=== PATIENT | male | born 1940 | race Caucasian/White ===

== ENCOUNTER 2021-01-07 02:49 | Outpatient (CLI) | payer MEDICARE, BC, SELFPAY ==
[2021-01-07 11:18] LABS: Source Nasal/Nares
[2021-01-07 19:21] LABS: COVID-19 PCR Positive (Negative)
== END 2021-01-07 02:50 | disposition home or self-care (01) ==
LOC: LBO 02:49
PROVIDERS: Visit Provider Ophthalmology
DX: Z20.822 Contact with and (suspected) exposure to COVID-19 (principal); Z01.818 Encounter for other preprocedural examination
CPT/HCPCS: 87635

== ENCOUNTER 2021-04-29 04:06 | Outpatient (CLI) | payer MEDICARE, SELFPAY ==
[2021-04-29 13:08] LABS: Source Nasal/Nares
[2021-04-29 20:28] LABS: COVID-19 PCR Negative (Negative)
== END 2021-04-29 04:07 | disposition home or self-care (01) ==
PROVIDERS: Visit Provider Ophthalmology
DX: Z20.822 Contact with and (suspected) exposure to COVID-19 (principal)
CPT/HCPCS: 87635

== ENCOUNTER 2021-05-02 06:49 | Day surgery (SDC) | payer MEDICARE, SELFPAY ==
[2021-05-02 07:13] VITALS: BP 131/91; PULSE 93; RESP 24; TEMP 36.3; O2SAT 98
[2021-05-02] MEDS: Tropicam./Phenyleph. (1/2.5%) 5 ML BTL OD ×3 (07:23→07:33)
--- NOTE | 2021-05-02 07:37 | W.ANESPRE ---
General Info Date of Service Date Performed: 05/02/21 Height: 5 ft 9 in Weight: 98.9 kg Body Mass Index (BMI): 32.1 Surgical Procedure: Operation Date: 05/02/21 08:40 Proposed Procedures Side Surgeon p Cataract Extraction with IOL Implant Right Manfred Lynch MD Meds Allergies and Home Medications Allergies Allergy/AdvReac Type Severity Reaction Status Date / Time animal dander Allergy Unverified 05/02/21 07:18 Home Medication Medication Instructions Recorded apixaban [Eliquis] 5 mg PO DAILY 01/06/21 atorvastatin 80 mg PO DAILY 01/06/21 famotidine 20 mg PO HS 01/06/21 tkyljpscxaz-jzzjrqrtc-yfwhamzn 1 inh INHALATION DAILY 01/06/21 [Trelegy Ellipta] ipratropium-albuterol [Combivent 1 puff INHALATION QID 01/06/21 Respimat] lisinopril 40 mg PO DAILY 01/06/21 magnesium 200 mg PO DAILY 01/06/21 metoprolol succinate 200 mg PO DAILY 01/06/21 nitroglycerin 0.4 mg SUBLINGUAL DIRECTED 01/06/21 omega-3 fatty acids [Fish Oil] 1 cap PO DAILY 01/06/21 furosemide 40 mg PO QAM 04/29/21 loteprednol etabonate 1 drp OPHTHALMIC (EYE) BID PRN 04/29/21 Current Visit Medications: Current Medications Generic Name Dose Route Start Last Admin Trade Name Freq PRN Reason Stop Dose Admin Acetaminophen 1,000 mg 05/02/21 06:00 Acetaminophen 500 Mg Tab PO Q4H PRN PRN Miscellaneous Medication 0 ml 05/02/21 06:00 Prednisolone 1%, Moxifloxacin 0.5%, Nepafenac 0.1% 5ml Btl OD DIRECTED [place] Miscellaneous Medication 0 ml 05/02/21 06:00 05/02/21 07:33 Tropicam./Phenyleph. (1/2.5%) 5 Ml Btl OD 1 drp DIRECTED [place] Administration Tetracaine HCl 0 ml 05/02/21 06:00 Tetracaine 0.5% 4 Ml Btl OD DIRECTED [place] PFSH Active Problems Active Problems: Problem Status Onset Code Nuclear sclerotic cataract of right eye H25.11 Cortical cataract of right eye H26.9 Medical History Medical History A-fib F/U with cardiolgist Dr. Packer [place] 2019 Atherosclerosis of coronary artery Benign neoplastic disease COPD (chronic obstructive pulmonary disease) COVID-19 Do not resuscitate status with supporting documentation Dyspnea Early satiety Exposure to hazardous metals GERD (gastroesophageal reflux disease) Gout Hearing loss HLD (hyperlipidemia) Hypersomnia Hypertensive disorder Lack of energy Lesion of ulnar nerve Mild intermittent asthma Neuromyopathy Obesity Respiration intermittent Pt states. The doctors tell me my breathing muscles are weak. Pt. states he is able to lay flat Shoulder joint pain Tinnitus Surgical History Surgical History History of esophagogastroduodenoscopy (EGD) Hx of cardiac catheterization 2013 Hx of colonoscopy Hx of tonsillectomy Tobacco Smoking/Tobacco Use Status: Former Tobacco Use Alcohol Alcohol Intake: current Alcohol intake frequency: a few times a week Alcohol type: hard liquor Substance Use Substance use: Never Substance use type: does not use Vital Signs and Lab Results Vital Signs Most Recent Vital Signs in EMR: Most Recent Vital Signs Temp Pulse Resp BP Pulse Ox 36.3 C L 93 H 24 131/91 H 98 05/02/21 07:13 05/02/21 07:13 05/02/21 07:13 05/02/21 07:13 05/02/21 07:13 Lab Results Blood Type / Crossmatch: No Data to Display Complete Blood Count: No Data to Display Complete Metabolic Panel: No Data to Display Liver Function Panel: No Data to Display Coagulation Panel: No Data to Display Cardiac Panel: No Data to Display Arterial Blood Gas: No Data to Display Venous Blood Gas: No Data to Display Pancreas Panel: No Data to Display Thyroid Panel: No Data to Display Infectious Disease: Coronavirus (COVID-19)(PCR) Negative (Negative) 04/29/21 08:49 04/29/21 Coronavirus 2019 Source Nasal/Nares 04/29/21 08:49 04/29/21 Blood Cultures: No Data to Display Toxicology Panel: No Data to Display Anesthesia Assessment and Plan Anesthesia History Personal History: No History of Anesthesia Complications Family History: No Family History of Anesthesia Complications Exercise Tolerance Exercise Tolerance: Metabolic Equivalents>4 Pertinent Negatives Pertinent Negatives: No Symptoms of GERD Cardiac & Pulmonary Exam Cardiac Exam: Normal S1/S2 Heart Sounds Pulmonary Exam: Clear Bilateral Breath Sounds Implantable Cardiac Device Does patient have a Pacemaker or an ICD?: No Airway Exam Known Difficult Airway: No Mallampati Class: 3 Mouth Opening: Normal (> 3cm) Thyromental Distance: Greater than 3 cm Facial Hair: Full Garcia Neck Range of Motion: Full ROM Neck Circumference: Normal Teeth Condition: Removable Dentures/Plates Upper (Partial) ASA Classification ASA Score: ASA 3 Emergency Case?: No NPO Status NPO Status: NPO Clears >2 hours, Solids >8 hours Anesthesia Plan Resuscitation Status: Full Code Anesthesia Technique: MAC Anesthesia Airway Planned: Natural Airway Monitors Used: Standard Monitors
[2021-05-02 07:49] VITALS: BMI 32.1
[2021-05-02] MEDS: Tetracaine 0.5% 4 ML BTL OD (08:24)
[2021-05-02] MEDS: Duovisc Viscoelastic System EACH 1 EACH (08:28)
[2021-05-02] MEDS: Lidocaine 2% Jelly 6 ML SYR (08:30)
[2021-05-02] MEDS: Povidone-Iodine Ophth 30 ML BTL (08:32)
[2021-05-02] MEDS: Balanced Salt Soln.-PLUS 500 ML BAG (08:34)
[2021-05-02 08:42] VITALS: BP 119/93; PULSE 76; RESP 16; TEMP 36.3; O2SAT 97
--- NOTE | 2021-05-02 08:45 | W.PM.DSUDISC ---
Discharge Plan Disposition Patient Disposition: HOME Condition: Good Discharge Details Attending Provider: Manfred Lynch Primary Care Provider: Unknown,Unknown Home Meds and New Rx's Prescriptions: No Action atorvastatin 80 mg Tablet 80 mg PO DAILY RF: 0 metoprolol succinate 200 mg Tablet Extended Release 24 Hr 200 mg PO DAILY RF: 0 famotidine 20 mg Tablet 20 mg PO HS RF: 0 nitroglycerin 0.4 mg Tablet, Sublingual 0.4 mg sublingual DIRECTED RF: 0 lisinopril 40 mg Tablet 40 mg PO DAILY RF: 0 magnesium 200 mg Tablet 200 mg PO DAILY RF: 0 Fish Oil Capsule 1 cap PO DAILY RF: 0 Eliquis 5 mg Tablet 5 mg PO DAILY RF: 0 Combivent Respimat 20-100 mcg/actuation Mist 1 puff inhalation QID RF: 0 Trelegy Ellipta 100-62.5-25 mcg Blister With Device 1 inh INHALATION DAILY RF: 0 furosemide 40 mg Tablet 40 mg PO QAM RF: 0 loteprednol etabonate 0.5 % Drops,Suspension 1 drp OPHTHALMIC (EYE) BID PRNRF: 0 Discharge Instructions Stand Alone Forms: Post-op Topical Cataract, Shivani Apodaca (DSU) Discharge Orders Discharge Orders: Discharge Order (Routine); Ordered 05/02/21 Ordered By: Manfred Lynch DS: Diagnosis Discharge Diagnosis (1) Nuclear sclerotic cataract of right eye: Status: Resolved (2) Cortical cataract of right eye: Status: Resolved
--- NOTE | 2021-05-02 08:45 | W.PM.OP ---
Date of service: 05/02/21 Time of Service: 08:45 Operative Note Operative Note DATE OF PROCEDURE: 05/02/21 PRE-OP DIAGNOSIS: Nuclear/cortical/posterior subcapsular cataract, right eye POST-OP DIAGNOSIS: same PROCEDURE: Cataract extraction using phacoemulsification with intraocular lens implant, right eye SURGEON: Manfred Lynch ANESTHESIA TYPE: Local By Surgeon and MAC Refer to Anesthesia Record ESTIMATED BLOOD LOSS: 0 PATHOLOGY: none sent COMPLICATIONS: None Patient was transported to: same day Patient's condition: stable Implants: Carlitos & Carlitos/MIRLANDE Tecnis [id number] Indications: Progressive visual loss due to cataract, right eye Procedure Description: CATARACT SURGERY OPERATIVE REPORT PREOPERATIVE DIAGNOSIS: 1. Nuclear/cortical/posterior subcapsular cataract, right eye POSTOPERATIVE DIAGNOSIS: Same OPERATION: 1. Cataract extraction using phacoemulsification with posterior chamber intraocular lens implant, right eye. IOL: IOL Wage Adjuster/Model: Carlitos & Carlitos / MIRLANDE Tecnis [id number] IOL Power: + 23.0 diopters IOL Serial Number: [id number] Optic Diameter: 6.0mm Haptic/Overall Diameter: 13.0mm PHACO INFO: Alfred t3n Magazinurion Vision System with OZil and Active Fluidics Cumulative Dispersed Energy (CDE): 15.05 seconds SURGEON: Manfred Lynch MD, MILAN ANESTHESIA: Monitored [facility] (MAC), with local sub-tenon's anesthetic infiltration COMPLICATIONS: None SPECIMENS: None INDICATIONS FOR PROCEDURE: The patient is a 80-year-old gentleman with history of diminished visual acuity in his right eye secondary to the development of nuclear/cortical/posterior subcapsular cataract. He is significantly symptomatic that he desires cataract surgery and attempt to improve and maximize his vision. PROCEDURE: The correct surgical eye was identified and marked as the right eye and the pupil was dilated in the preoperative area using mydriatics and cycloplegics. The dilated pupil size was 7.0 mm. He elected to proceed without oral sedation.. The patient was brought to the operating room where cardiopulmonary monitoring was instituted and surgical time-out was performed, confirming the correct operative eye and IOL power. Topical anesthesia was administered and ophthalmic povidone-iodine 5% was instilled into the conjunctival fornices. Lidocaine gel was applied to the cornea and the lexus-ocular area was prepped with Betadine 10% solution and draped in the usual sterile fashion for intraocular surgery, including an aperture drape. A Tegaderm transparent film dressing was cut in half and used to cover the lashes and lid margins. Care was taken to sequester the lashes and lid margins under the Tegaderm dressing. A lid speculum was placed between the lids of the operative eye and the Patrick-Jatin operating microscope was maneuvered into position. Jo Ann scissors were then used to make a conjunctival buttonhole approximately 6mm posterior to the limbus in the inferonasal quadrant. Blunt dissection was carried out to expose bare sclera, and a blunt-tipped sub-tenon?s anesthesia cannula was introduced and passed posteriorly along the globe where non-preserved plain lidocaine was injected into posterior sub-Tenon?s space. A sideport knife was used to make a paracentesis port inferotemporally. Intraocular phenylephrine/lidocaine was injected into the anterior chamber. The anterior chamber was filled with viscoelastic. A 2.4mm keratome knife was used to create a half-thickness groove at the limbus and then to construct a three-plane near-clear corneal tunnel extending 2.0mm into clear cornea superiortemporally. A flap was raised on the anterior capsule and capsulorhexis forceps were used to complete a continuous curvilinear capsulorhexis of 5.0 mm. Balanced salt solution was then used to perform cortical cleaving hydrodissection and nuclear hydrodelineation until the lens could be freely rotated within the capsular bag. The lens nucleus was then disassembled and removed within the capsular bag and iris plane using phacoemulsification. Residual cortical material was removed using the I/A handpiece. The posterior capsule was carefully polished to remove as much residual lens epithelial cells as safely possible. The capsular bag was then inflated and the anterior chamber deepened with viscoelastic. The lens implant described above was inserted into the capsular bag using the MIRLANDE [place] Injector. A Kuglen hook was used to dial the IOL into position. Residual viscoelastic was then removed first from posterior to the IOL, then from the anterior chamber using the I/A handpiece. The lens implant was noted to center nicely within the capsular bag. The incisions were stromally hydrated, and the anterior chamber was reformed using BSS. Then 0.5cc of moxifloxacin 1.0mg/ml were injected into the capsular bag and anterior chamber. The incisions were checked with a Weck spear and found to be secure. Several drops of ophthalmic povidone-iodine 5% were then applied to the eye followed by two drops of Imprimis combination prednisolone/moxifloxacin/nepafenac solution. The drapes were removed and a clear plastic protective eye shield was placed over the eye. The patient was then returned to Same Day Surgery in stable condition.
--- NOTE | 2021-05-02 09:04 | W.ANESPOSTOP ---
Postoperative Evaluation Date, Time and Location Date Performed: 05/02/21 Time Performed: 08:45 Patient Location: Day Surgery Unit Vital Signs Most Recent Imported Vital Signs: Most Recent Vital Signs Temp Pulse Resp BP Pulse Ox 36.3 C L 76 16 119/93 H 97 05/02/21 08:42 05/02/21 08:42 05/02/21 08:42 05/02/21 08:42 05/02/21 08:42 Pain Score Most Recent Pain Score: Most Recent Pain Score Pain Level 0 05/02/21 08:42 Assessment Mental Status: Awake (Alert & Oriented to Patient Baseline) Airway and Respiratory Function: Patent airway with normal (patient baseline) respiratory exam Cardiovascular Function: Hemodynamically Stable Hydration Status: Adequately Hydrated Nausea & Vomiting: No Nausea or Vomiting Pain: Pt. Denies Any Pain Peripheral Nerve Block: Patient did not receive a nerve block
== END 2021-05-02 09:00 | disposition home or self-care (01) ==
PROVIDERS: Visit Provider Ophthalmology
PROC: (CPT 66984; principal; 2021-05-02 08:30)
DX: H25.11 Age-related nuclear cataract, right eye (principal); I48.91 Unspecified atrial fibrillation; J44.9 Chronic obstructive pulmonary disease, unspecified; E78.5 Hyperlipidemia, unspecified; I10 Essential (primary) hypertension
CPT/HCPCS: 66984; V2632

== ENCOUNTER 2021-05-13 01:59 | Outpatient (CLI) | payer MEDICARE, SELFPAY ==
[2021-05-13 10:36] LABS: Source Nasal/Nares
[2021-05-13 13:45] LABS: COVID-19 PCR Negative (Negative)
== END 2021-05-13 02:00 | disposition home or self-care (01) ==
LOC: LBO 01:59
PROVIDERS: Visit Provider Ophthalmology
DX: Z20.822 Contact with and (suspected) exposure to COVID-19 (principal); Z01.818 Encounter for other preprocedural examination
CPT/HCPCS: 87635

== ENCOUNTER 2021-05-16 07:15 | Day surgery (SDC) | payer MEDICARE, SELFPAY ==
[2021-05-16 07:29] VITALS: BP 116/68; PULSE 73; RESP 16; TEMP 36.1; O2SAT 99
[2021-05-16] MEDS: Tropicam./Phenyleph. (1/2.5%) 5 ML BTL OS ×3 (07:38→07:50)
--- NOTE | 2021-05-16 08:26 | W.ANESPRE ---
General Info Date of Service Date Performed: 05/16/21 Height: 5 ft 9 in Weight: 98.7 kg Body Mass Index (BMI): 32.1 Surgical Procedure: Operation Date: 05/16/21 09:40 Proposed Procedure Side Surgeon p Cataract Extraction with IOL Implant Left Manfred Lynch MD Meds Allergies and Home Medications Allergies Allergy/AdvReac Type Severity Reaction Status Date / Time animal dander Allergy Verified 05/16/21 07:25 Home Medication Medication Instructions Recorded apixaban 5 mg tablet (Eliquis) 5 mg PO BID 01/06/21 atorvastatin 80 mg tablet 80 mg PO DAILY 01/06/21 famotidine 20 mg tablet 20 mg PO HS 01/06/21 fluticasone fur. 100 mcg-umeclid 1 inh INHALATION DAILY 01/06/21 62.5 mcg-vilant 25 mcg inhalat.powder (Trelegy Ellipta) ipratropium 20 mcg-albuterol 100 1 puff INHALATION QID 01/06/21 mcg/actuation mist for inhalation (Combivent Respimat) lisinopril 40 mg tablet 40 mg PO DAILY 01/06/21 magnesium 200 mg tablet 200 mg PO DAILY 01/06/21 metoprolol succinate 200 mg 200 mg PO DAILY 01/06/21 tablet,extended release 24 hr nitroglycerin 0.4 mg sublingual 0.4 mg SUBLINGUAL DIRECTED 01/06/21 tablet omega-3 fatty acids 1 cap PO DAILY 01/06/21 furosemide 40 mg tablet 40 mg PO QAM 04/29/21 loteprednol etabonate 0.5 % eye 1 drp OPHTHALMIC (EYE) BID PRN 04/29/21 drops,suspension Current Visit Medications: Current Medications Generic Name Dose Route Start Last Admin Trade Name Freq PRN Reason Stop Dose Admin Acetaminophen 1,000 mg 05/16/21 06:00 Acetaminophen 500 Mg Tab PO Q4H PRN PRN Miscellaneous Medication 0 ml 05/16/21 06:00 Prednisolone 1%, Moxifloxacin 0.5%, Nepafenac 0.1% 5ml Btl OS DIRECTED [place] Miscellaneous Medication 0 ml 05/16/21 06:00 05/16/21 07:50 Tropicam./Phenyleph. (1/2.5%) 5 Ml Btl OS 1 drp DIRECTED [place] Administration Tetracaine HCl 0 ml 05/16/21 06:00 Tetracaine 0.5% 4 Ml Btl OS DIRECTED [place] PFSH Active Problems Active Problems: Problem Status Onset Code Nuclear sclerotic cataract of right eye H25.11 Cortical cataract of right eye H26.9 Medical History Medical History A-fib F/U with cardiolgist Dr. Packer [place] 2019 Atherosclerosis of coronary artery Benign neoplastic disease COPD (chronic obstructive pulmonary disease) COVID-19 Do not resuscitate status with supporting documentation Dyspnea Early satiety Exposure to hazardous metals GERD (gastroesophageal reflux disease) Gout Hearing loss HLD (hyperlipidemia) Hypersomnia Hypertensive disorder Lack of energy Lesion of ulnar nerve Mild intermittent asthma Neuromyopathy Obesity Respiration intermittent Pt states. The doctors tell me my breathing muscles are weak. Pt. states he is able to lay flat Shoulder joint pain Tinnitus Surgical History Surgical History History of cataract surgery History of esophagogastroduodenoscopy (EGD) Hx of cardiac catheterization 2013 Hx of colonoscopy Hx of tonsillectomy Tobacco Smoking/Tobacco Use Status: Former Tobacco Use Alcohol Alcohol Intake: current Alcohol intake frequency: a few times a week Alcohol type: hard liquor Substance Use Substance use: Never Substance use type: does not use Vital Signs and Lab Results Vital Signs Most Recent Vital Signs in EMR: Most Recent Vital Signs Temp Pulse Resp BP Pulse Ox 36.1 C L 73 16 116/68 99 05/16/21 07:29 05/16/21 07:29 05/16/21 07:29 05/16/21 07:29 05/16/21 07:29 Lab Results Blood Type / Crossmatch: No Data to Display Complete Blood Count: No Data to Display Complete Metabolic Panel: No Data to Display Liver Function Panel: No Data to Display Coagulation Panel: No Data to Display Cardiac Panel: No Data to Display Arterial Blood Gas: No Data to Display Venous Blood Gas: No Data to Display Pancreas Panel: No Data to Display Thyroid Panel: No Data to Display Infectious Disease: Coronavirus (COVID-19)(PCR) Negative (Negative) 05/13/21 08:51 05/13/21 Coronavirus 2019 Source Nasal/Nares 05/13/21 08:51 05/13/21 Blood Cultures: No Data to Display Toxicology Panel: No Data to Display Anesthesia Assessment and Plan Anesthesia History Personal History: No History of Anesthesia Complications Family History: No Family History of Anesthesia Complications Exercise Tolerance Exercise Tolerance: Metabolic Equivalents>4 Cardiac & Pulmonary Exam Cardiac Exam: Normal S1/S2 Heart Sounds Pulmonary Exam: Clear Bilateral Breath Sounds Implantable Cardiac Device Does patient have a Pacemaker or an ICD?: No Airway Exam Known Difficult Airway: No Mallampati Class: 3 Mouth Opening: Normal (> 3cm) Thyromental Distance: Greater than 3 cm Neck Range of Motion: Full ROM Neck Circumference: Normal Teeth Condition: Removable Dentures/Plates Upper (Partial) ASA Classification ASA Score: ASA 3 Emergency Case?: No NPO Status NPO Status: NPO Clears >2 hours, Solids >8 hours Anesthesia Plan Resuscitation Status: Full Code Anesthesia Technique: MAC Anesthesia Airway Planned: Natural Airway Monitors Used: Standard Monitors
[2021-05-16 08:45] VITALS: BMI 32.1
[2021-05-16] MEDS: Povidone-Iodine Ophth 30 ML BTL (09:04)
[2021-05-16] MEDS: Lidocaine 2% Jelly 6 ML SYR (09:04)
[2021-05-16] MEDS: Tetracaine 0.5% 4 ML BTL OS (09:10)
[2021-05-16] MEDS: Balanced Salt Soln.-PLUS 500 ML BAG (09:11)
[2021-05-16] MEDS: Duovisc Viscoelastic System EACH 1 EACH (09:12)
--- NOTE | 2021-05-16 09:32 | W.PM.DSUDISC ---
Discharge Plan Disposition Patient Disposition: HOME Condition: Good Discharge Details Attending Provider: Manfred Lynch Primary Care Provider: Uziel Sloan Home Meds and New Rx's Prescriptions: No Action atorvastatin 80 mg Tablet 80 mg PO DAILY 0RF metoprolol succinate 200 mg Tablet Extended Release 24 Hr 200 mg PO DAILY 0RF famotidine 20 mg Tablet 20 mg PO HS 0RF nitroglycerin 0.4 mg Tablet, Sublingual 0.4 mg sublingual DIRECTED 0RF lisinopril 40 mg Tablet 40 mg PO DAILY 0RF magnesium 200 mg Tablet 200 mg PO DAILY 0RF Fish Oil Capsule 1 cap PO DAILY 0RF Eliquis 5 mg Tablet 5 mg PO BID 0RF Combivent Respimat 20-100 mcg/actuation Mist 1 puff inhalation QID 0RF Trelegy Ellipta 100-62.5-25 mcg Blister With Device 1 inh INHALATION DAILY 0RF furosemide 40 mg Tablet 40 mg PO QAM 0RF loteprednol etabonate 0.5 % Drops,Suspension 1 drp OPHTHALMIC (EYE) BID PRN0RF Discharge Instructions Stand Alone Forms: Post-op Topical Cataract, Shivani Apodaca (DSU) Discharge Orders Discharge Orders: Discharge Order (Routine); Ordered 05/16/21 Ordered By: Manfred Lynch DS: Diagnosis Discharge Diagnosis (1) Cortical cataract of left eye: Status: Resolved (2) Nuclear sclerotic cataract of left eye: Status: Resolved
[2021-05-16 09:33] VITALS: BP 119/65; PULSE 89; RESP 18; TEMP 36.1; O2SAT 98
--- NOTE | 2021-05-16 09:33 | W.PM.OP ---
Date of service: 05/16/21 Time of Service: 09:33 Operative Note Operative Note DATE OF PROCEDURE: 05/16/21 PRE-OP DIAGNOSIS: Nuclear/cortical cataract, left eye POST-OP DIAGNOSIS: same PROCEDURE: Cataract extraction using phacoemulsification with intraocular lens implant, left eye SURGEON: Manfred Lynch ANESTHESIA TYPE: Local By Surgeon and MAC Refer to Anesthesia Record PATHOLOGY: none sent COMPLICATIONS: None Patient was transported to: same day Patient's condition: stable Implants: Carlitos and Carlitos / [employer] Tecnis [id number] Indications: Progressive decreased vision due to cataract, left eye Procedure Description: CATARACT SURGERY OPERATIVE REPORT PREOPERATIVE DIAGNOSIS: 1. Nuclear/cortical cataract, left eye POSTOPERATIVE DIAGNOSIS: Same OPERATION: 1. Cataract extraction using phacoemulsification with posterior chamber intraocular lens implant, left eye. IOL: IOL Agricultural Research Engineer/Model: Carlitos & Carlitos / MIRLANDE Tecnis [id number] IOL Power: + 22.0 diopters IOL Serial Number: [id number] Optic Diameter: 6.0 mm Haptic/Overall Diameter: 13.0 mm PHACO INFO: AlfredDiffonon Vision System with OZil and Active Fluidics Cumulative Dispersed Energy (CDE): 11.25 seconds SURGEON: Manfred Lynch MD, MILAN ANESTHESIA: Monitored A [facility] (MAC), with local sub-tenon's anesthetic infiltration COMPLICATIONS: None SPECIMENS: None INDICATIONS FOR PROCEDURE: The patient is a 80-year-old gentleman with history of diminished visual acuity in both eyes secondary to the development of bilateral nuclear and cortical cataract. He has already undergone cataract surgery in the right eye and is doing well postoperatively. He now presents for cataract surgery in the left eye. PROCEDURE: The correct surgical eye was identified and marked as the left eye and the pupil was dilated in the preoperative area using mydriatics and cycloplegics. The dilated pupil size was 7.0 mm. He elected to proceed without oral sedation.. The patient was brought to the operating room where cardiopulmonary monitoring was instituted and surgical time-out was performed, confirming the correct operative eye and IOL power. Topical anesthesia was administered and ophthalmic povidone-iodine 5% was instilled into the conjunctival fornices. Lidocaine gel was applied to the cornea and the lexus-ocular area was prepped with Betadine 10% solution and draped in the usual sterile fashion for intraocular surgery, including an aperture drape. A Tegaderm transparent film dressing was cut in half and used to cover the lashes and lid margins. Care was taken to sequester the lashes and lid margins under the Tegaderm dressing. A lid speculum was placed between the lids of the operative eye and the Alfred Lux[employer] operating microscope was maneuvered into position. Jo Ann scissors were then used to make a conjunctival buttonhole approximately 6mm posterior to the limbus in the inferonasal quadrant. Blunt dissection was carried out to expose bare sclera, and a blunt-tipped sub-tenon?s anesthesia cannula was introduced and passed posteriorly along the globe where non-preserved plain lidocaine was injected into posterior sub-Tenon?s space. A sideport knife was used to make a paracentesis port superiorly/superiortemporally. Intraocular phenylephrine/lidocaine was injected int the anterior chamber.. The anterior chamber was filled with viscoelastic. A 2.4mm keratome knife was used to create a half-thickness groove at the limbus and then to construct a three-plane near-clear corneal tunnel extending 2.0mm into clear cornea at the 3:00 position. A flap was raised on the anterior capsule and capsulorhexis forceps were used to complete a continuous curvilinear capsulorhexis of 6.0 mm. The capsule was noted to be quite thin, with mild zonular laxity. Balanced salt solution was then used to perform cortical cleaving hydrodissection and nuclear hydrodelineation until the lens could be freely rotated within the capsular bag. The lens nucleus was then disassembled and removed within the capsular bag and iris plane using phacoemulsification. Residual cortical material was removed using the 45-degree angled silicone I/A tip with 0.3mm port. The posterior capsule was carefully polished to remove as much residual lens epithelial cells as safely possible. The capsular bag was then inflated and the anterior chamber deepened with viscoelastic. The lens implant described above was inserted into the capsular bag using the MIRLANDE Lum[place] Injector. A Kuglen hook was used to dial the IOL into position. Residual viscoelastic was then removed first from posterior to the IOL, then from the anterior chamber using the I/A handpiece. The lens implant was noted to center nicely within the capsular bag. The incisions were stromally hydrated, and the anterior chamber was reformed using BSS. Then 0.5cc of moxifloxacin 1.0mg/ml were injected into the capsular bag and anterior chamber. The incisions were checked with a Weck spear and found to be secure. Several drops of ophthalmic povidone-iodine 5% were then applied to the eye followed by two drops of Imprimis combination prednisolone/moxifloxacin/nepafenac solution. The drapes were removed and a clear plastic protective eye shield was placed over the eye. The patient was then returned to Same Day Surgery in stable condition.
--- NOTE | 2021-05-16 09:52 | W.ANESPOSTOP ---
Postoperative Evaluation Date, Time and Location Date Performed: 05/16/21 Time Performed: 08:40 Patient Location: Day Surgery Unit Vital Signs Most Recent Imported Vital Signs: Most Recent Vital Signs Temp Pulse Resp BP Pulse Ox 36.1 C L 89 18 119/65 98 05/16/21 09:33 05/16/21 09:33 05/16/21 09:33 05/16/21 09:33 05/16/21 09:33 Pain Score Most Recent Pain Score: Most Recent Pain Score Pain Level 0 05/16/21 09:33 Assessment Mental Status: Awake (Alert & Oriented to Patient Baseline) Airway and Respiratory Function: Patent airway with normal (patient baseline) respiratory exam Cardiovascular Function: Hemodynamically Stable Hydration Status: Adequately Hydrated Nausea & Vomiting: No Nausea or Vomiting Pain: Pt. Denies Any Pain Peripheral Nerve Block: Patient did not receive a nerve block
== END 2021-05-16 09:51 | disposition home or self-care (01) ==
PROVIDERS: PCP Family Medicine; Visit Provider Ophthalmology
PROC: (CPT 66984; principal; 2021-05-16 09:30)
DX: H25.12 Age-related nuclear cataract, left eye (principal); I48.91 Unspecified atrial fibrillation; J44.9 Chronic obstructive pulmonary disease, unspecified; I10 Essential (primary) hypertension
CPT/HCPCS: 66984; V2632

== ENCOUNTER 2023-11-28 11:20 | Outpatient (CLI) | payer MEDICARE, SELFPAY ==
--- NOTE | 2023-11-28 06:00 | DI.RAD_ITS ---
Exam(s) XR PAIN CLINIC SACRIOILIAC 2V EXAM: XR PAIN CLINIC SACRIOILIAC 2V CLINICAL HISTORY: DX: Sacroiliac Joint Dysfunction TECHNIQUE: 2D and realtime digital imaging was performed. Radiologist not present. CONTRAST MATERIAL: None. COMPARISON: No exams were available for comparison FINDINGS: Fluoroscopy was provided for pain management therapy. Please refer to procedure report or details. Radiation Exposure Index: Ka,r=11.30 mGy IMPRESSION: As above. RADIATION DOSE DELIVERED:
--- NOTE | 2023-11-28 07:48 | PDOC.PAIN ---
Date of service: 11/28/23 Time of Service: 12:09 Pain Managment Procedure Note Procedure Note Procedure Note: ?Sacroiliac Joint Steroid Injection ? Location: ? ? Left SI joint ? Pre-procedure Diagnosis: Sacroiliitis, not elsewhere classified - M46.1 ? Post-procedure Diagnosis:? The same as above ? Sedation:? NONE ? Medication: Depo-Medrol 40 mg, bupivacaine 0.5% 1 mL, Omnipaque 0.25 mL per joint ? Estimated blood loss:? less than 2 cc ? Surgeon:? Dung Nina MD ? COMMENT: THIS WILL BE BOTH DIAGNOSTIC AND THERAPEUTIC ? Procedure Detail:? The procedure and potential risks were explained to the patient and informed written consent was obtained. The patient was escorted to the procedure room and placed in the prone position. Pillows were utilized for proper positioning and comfort. Time out was performed in the procedure room with nursing staff confirming the patient's identity, procedure to be performed, allergies, and any blood thinning or anti-platelet medications. The patient's lumbosacral area was prepped with ChloraPrep and draped in a sterile fashion. Sterile technique was maintained throughout the procedure.? Sterile gloves were used, a face mask was worn, and new single dose vials of all medications were used with the top being swabbed with alcohol and given time to dry prior to withdrawal of medication. ETHYL CHLORIDE was used to anesthetize the skin. With fluoroscopic guidance, a 22-gauge 3.5 spinal needle was advanced into the posteroinferior aspect of the Left SI joint . Confirmation of EXTRA-articular position of the needle tip was obtained with injection of 0.25cc of Omnipaque 300 contrast which showed appropriate spread .? Following negative aspiration, 40mg of methylprednisolone mixed with 1 mL of bupivacaine 0.5% was injected.? The needle was gently removed. ?The patient tolerated the procedure well and was transported to the recovery area for observation and discharge instructions.? Permanent images saved and recorded. Plan:? Follow up prn. COMMENT: 80 % BETTER AFTER INJECTION
[2023-11-28 11:31] VITALS: BP 132/93; PULSE 81; RESP 18; TEMP 36.4; O2SAT 97
[2023-11-28 12:13] VITALS: PULSE 73; O2SAT 95
[2023-11-28] MEDS: Bupivacaine 0.5% Pres-Free 10 ML VIAL IJ (12:14)
[2023-11-28] MEDS: Omnipaque 240 MG/ML 50 ML BTL IJ (12:15)
[2023-11-28] MEDS: methylPREDNISolone ACETATE 80 MG/ML VIAL IJ (12:16)
[2023-11-28] MEDS: Nerve Block Tray 1 EACH MC (12:17)
== END 2023-11-28 11:21 | disposition home or self-care (01) ==
PROVIDERS: PCP Family Medicine; Visit Provider Anesthesiology Pain Medicine
DX: M54.50 Low back pain, unspecified (principal); M46.1 Sacroiliitis, not elsewhere classified
CPT/HCPCS: 00123; 27096; 72200; J0665; J1010; Q9967

== ENCOUNTER 2024-02-04 01:23 | Outpatient (CLI) | payer MEDICARE, SELFPAY ==
--- NOTE | 2024-02-04 07:45 | DI.MRI_ITS ---
Exam(s) MR LUMBAR SPINE WO EXAM: MR LUMBAR SPINE WO CLINICAL HISTORY: pain to LLE,lumbar radiculitis,m54.16,m43.06,lumbar spondylosis. TECHNIQUE: Multiplanar multisequence MRI of the Lumbar spine was performed. COMPARISON: CR XR SWALLOWING FUNCTION W/VIDEO from 05/31/2021 FINDINGS: Bones: The last intervertebral disc space is designated the L5/S1 level for the numbering purpose of this examination. The vertebral body heights are well maintained. There is grade 1 anterolisthesis of L5 on S1. Mild degenerative endplate signal changes and osteophytes are seen at several levels of the lumbar spine. Cord: The conus tip ends at the T11-T12 level. It is of normal size and signal intensity. T12-L1: No disc herniations or bulges are present. No central spinal canal or neural foraminal stenos is. L1-2: No disc herniations or bulges are present. No central spinal canal or neural foraminal stenosis . L2-3: No disc herniations or bulges are present. No central spinal canal or neural foraminal stenosis . L3-4: No disc herniations or bulges are present. No central spinal canal or neural foraminal stenosis .Mild degenerative changes of the facets. L4-5: There is a small central disc herniation. Mild degenerative changes of the facets are seen. N o significant central spinal canal stenosis is present. There is mild narrowing of the neural forame n. L5-S1: There is a mild diffuse disc bulge. No significant central spinal canal stenosis.There is mil [id number] bilateral neural foraminal stenosis. Soft tissues: The visualized SI joints and sacrum are well maintained. The paraspinal soft tissues ar e unremarkable. IMPRESSION: 1. Small central disc herniation at L4-L5 causing no significant central spinal canal compression. 2. Degenerative changes seen from L3-4 through L5-S1. There is mild narrowing of the neural foramen at L4-5 bilaterally and [id number] neural foraminal narrowing at L5-S1 bilaterally. DATA REPOSITORY:
== END 2024-02-04 01:43 ==
LOC: DI 01:23
PROVIDERS: PCP Family Medicine; Visit Provider Anesthesiology Pain Medicine
DX: M43.06 Spondylolysis, lumbar region
CPT/HCPCS: 72148

== ENCOUNTER 2024-03-03 12:31 | Outpatient (CLI) | payer MEDICARE, SELFPAY ==
[2024-03-03 12:44] VITALS: BP 119/98; PULSE 88; RESP 20; TEMP 36.7; O2SAT 98
--- NOTE | 2024-03-03 12:46 | PDOC.PAIN_ITS ---
Date of service: 03/03/24 Time of Service: 13:22 Pain Managment Procedure Note Procedure Note Procedure Note: Lumbar Transforaminal Epidural Steroid Injection ? Location: LEFT L4 ? Pre-procedure Diagnosis: M54.17-Radiculopathy, lumbosacral region M54.16 Radiculopathy, lumbar region ? Post-procedure Diagnosis:? The same as above ? Sedation:? none ? Estimated blood loss:? less than 2 cc ? Surgeon:? Dung Nina MD COMMENT: SOME LEFT SIDED FORAMINAL STENOSIS L4 AND RADICULAR PAIN ? Procedure Detail:?? The procedure and potential risks were explained to the patient and informed written consent was obtained. The patient was escorted to the procedure room and placed in the prone position. Pillows were utilized for proper positioning and comfort. Time out was performed in the procedure room with nursing staff confirming the patient's identity, procedure to be performed, allergies, and any blood thinning or anti-platelet medications. The patient's lower back was prepped with ChloraPrep and draped in a sterile fashion. Sterile gloves were used, a face mask was worn, and new single dose vials of all medications were used with the top being swabbed with alcohol and given time to dry prior to withdrawal of medication. A LEFT-sided oblique fluoroscopic view was obtained, with visualization of L4-5. Lidocaine 1% was used to anesthetize the skin. The tip of a 22-gauge, Quincke needle was advanced toward the 6 o 'clock position of the superior pedicle at the target level.? It was advanced just under the pedicle to the neural foramen L4-5. Correct needle placement was confirmed through review of the fluoroscopy. Next, following negative aspiration, 1cc's of Omnipaque 240 contrast was injected under live fluoroscopy which showed good flow throughout the epidural space and no evidence of vascular flow or flow into adjacent compartments. Next, following negative aspiration, 15mg of preservative-free dexamethasone and 0.5ml of 0.5% bupivacaine was injected. The needle was gently removed.? The patient tolerated the procedure well.? Permanent images saved and recorded. Plan:? Follow up prn PAIN: PRE PROCEDURE 3/10 POST PROCEDURE 0 COMMENT: Will have pt come in for office visit if not better
[2024-03-03 13:17] VITALS: PULSE 78; O2SAT 96
--- NOTE | 2024-03-03 13:23 | DI.RAD_ITS ---
Exam(s) XR PAIN CLINIC LUMBAR SP 2V EXAM: XR PAIN CLINIC LUMBAR SP 2V CLINICAL HISTORY: DX: Lumbar Radiculopathy. TECHNIQUE: Fluoroscopy was provided for the referring physician for guidance with performing pain cl inic injection procedure. COMPARISON: No exams were available for comparison FINDINGS: Please see procedure note for details. Fluoro time: 43.2 seconds RADIATION DOSE DELIVERED: Ka,r=21.8 mGy
[2024-03-03] MEDS: Bupivacaine 0.5% Pres-Free 10 ML VIAL IJ (13:31)
[2024-03-03] MEDS: Dexamethasone Sod. Phos./Pres-Free 10 MG/ML VIAL IJ (13:31)
[2024-03-03] MEDS: Omnipaque 240 MG/ML 50 ML BTL IJ (13:31)
[2024-03-03] MEDS: Nerve Block Tray 1 EACH MC (13:32)
== END 2024-03-03 12:32 | disposition home or self-care (01) ==
LOC: PC 12:31
PROVIDERS: PCP Family Medicine; Visit Provider Anesthesiology Pain Medicine
DX: M54.50 Low back pain, unspecified (principal); M54.17 Radiculopathy, lumbosacral region; M54.16 Radiculopathy, lumbar region
CPT/HCPCS: 00123; 64483; 72100; J0665; J1100; Q9967